=== PATIENT | female | born 1970 | race Caucasian/White ===

== ENCOUNTER 2017-12-23 10:30 | Day surgery (SDC) | payer OTHER ==
[~2017-12-23] VITALS: Ht 170.2 cm; Wt 91.6 kg
[~2017-12-23 10:30] MED LIST: Amitriptyline H50 MG PO; CLON1 PO; ERGO400 PO; Norco 7.5-3251 EACH PO; Omeprazole20 M1 PO; SERT100 PO; Toprol Xl50 MG PO
[2017-12-23 12:07] LABS: Anion Gap 9 mmol/L (6-16); Blood Urea Nitrogen 18 mg/dL (8-24); Bun/Creatinine Ratio 19.6 (12.0-20.0); CO2, Blood 26 mmol/L (21-32); Calcium, Blood 8.2 mg/dL (8.5-10.1); Chloride, Blood 107 mmol/L (98-108); Creatinine, Blood 0.92 mg/dL (0.40-1.00); Glomerular Filtration Rate >60 (60-); Glucose, Blood 87 mg/dL (70-99); Potassium, Blood 4.2 mmol/L (3.5-5.5); Sodium, Blood 142 mmol/L (136-145)
== END 2017-12-23 20:31 | disposition home or self-care (01) ==
LOC: ORSCMMR 10:30 → SURS 19:12 → ORSCMMR 20:31
PROVIDERS: Orthopaedic Surgery
PROC: 0PSC04Z Reposition Right Humeral Head with Internal Fixation Device, Open Approach (ICD-10-PCS; principal; 2017-12-23 12:30)
DX: S42.251A Displaced fracture of greater tuberosity of right humerus, initial encounter for closed fracture (principal); Z79.899 Other long term (current) drug therapy
CPT/HCPCS: 36415; 80048; 93005; 93010; C1713; J0690; J1100; J2250; J3010; J7120

== ENCOUNTER → 2018-01-27 | Outpatient (CLI) | payer OTHER ==
[2018-01-27 09:36] LABS: Anion Gap 6 mmol/L (6-16); Blood Urea Nitrogen 16 mg/dL (8-24); Bun/Creatinine Ratio 17.4 (12.0-20.0); CO2, Blood 27 mmol/L (21-32); Calcium, Blood 8.5 mg/dL (8.5-10.1); Chloride, Blood 111 mmol/L (98-108); Creatinine, Blood 0.92 mg/dL (0.40-1.00); Glomerular Filtration Rate >60 (60-); Glucose, Blood 97 mg/dL (70-99); Potassium, Blood 3.7 mmol/L (3.5-5.5); Sodium, Blood 144 mmol/L (136-145)
== END | disposition home or self-care (01) ==
LOC: LAB SHORT 08:50 → LAB 08:50
PROVIDERS: Orthopaedic Surgery
DX: I10 Essential (primary) hypertension (principal)
CPT/HCPCS: 36415; 80048

== ENCOUNTER 2020-09-30 01:29 | Inpatient (IN) | payer OTHER ==
[~2020-09-30] VITALS: Ht 167.6 cm; Wt 103.8 kg
[2020-09-30 01:51] LABS: BASOPHILS ABSOLUTE AUTO 0.21 K/mm3 (0.00-0.23); BASOPHILS PERCENT AUTO 1 % (0-2); EOSINOPHILS ABSOLUTE AUTO 0.43 K/mm3 (0.00-0.68); EOSINOPHILS PERCENT AUTO 3 % (0-6); Hemoglobin 12.1 g/dL (11.5-16.0); IMMATURE GRAN ABSOLUTE AUTO 1.11 K/mm3 (0.00-0.10); IMMATURE GRAN PERCENT AUTO 7 % (0-1); LYMPHOCYTES ABSOLUTE AUTO 3.37 K/mm3 (0.84-5.20); LYMPHOCYTES PERCENT AUTO 20 % (21-46); MONOCYTES ABSOLUTE AUTO 1.03 K/mm3 (0.16-1.47); MONOCYTES PERCENT AUTO 6 % (4-13); Mean Corpuscular HGB 27.4 pg (26.0-34.0); Mean Corpuscular HGB Conc 30.3 g/dL (31.5-36.5); Mean Corpuscular Volume 91 fL (80-100); Mean Platelet Volume 9.6 fL (9.1-12.4); NEUTROPHILS ABSOLUTE AUTO 10.67 K/mm3 (1.96-9.15); NEUTROPHILS PERCENT AUTO 64 % (41-73); NRBC ABSOLUTE 0.03 K/mm3 (0.00-0.02); NRBC Auto 0.2 /100 WBC (0.0-0.2); Platelet Count 536 K/mm3 (150-400); RDW Coefficient Variation 14.6 % (11.7-14.2); RDW Standard Deviation 48.4 fL (35.1-46.3); Red Blood Cell Count 4.42 M/mm3 (3.80-5.20); White Blood Cell Count 16.82 K/mm3 (4.00-11.30)
[2020-09-30 02:25] LABS: Albumin, Blood 2.1 g/dL (3.4-5.0); Albumin/Globulin Ratio 0.5 (0.8-1.8); Bilirubin, Total 0.2 mg/dL (0.1-1.0); Bun/Creatinine Ratio 12.3 (12.0-20.0); Calcium, Blood 8.9 mg/dL (8.5-10.1); Creatinine, Blood 1.14 mg/dL (0.40-1.00); Globulin, Blood 4.4 g/dL (2.2-4.0); Magnesium, Blood 2.2 mg/dL (1.6-2.4); Potassium, Blood 3.2 mmol/L (3.5-5.5); Total Protein, Blood 6.5 g/dL (6.4-8.2)
[2020-09-30 02:27] LABS: BAND PERCENT MAN 4 % (0-8); BASOPHILS PERCENT MAN 0 % (0-2); EOSINOPHILS ABSOLUTE MAN 0.16 K/mm3 (0.00-0.68); EOSINOPHILS PERCENT MAN 1 % (0-6); LYMPHOCYTES ABSOLUTE MAN 2.69 K/mm3 (0.84-5.20); LYMPHOCYTES PERCENT MAN 16 % (21-46); METAMYELOCYTE ABSOLUTE MAN 0.16 K/mm3 (0.00-0.00); METAMYELOCYTE PERCENT MAN 1 % (0-0); MONOCYTES ABSOLUTE MAN 0.84 K/mm3 (0.16-1.47); MONOCYTES PERCENT MAN 5 % (4-13); MYELOCYTE PERCENT MAN 3 % (0-0); NEUTROPHILS ABSOLUTE MAN 12.44 K/mm3 (1.96-9.15); SEG NEUTROPHILS PERCENT MAN 70 % (41-73); TOTAL CELLS COUNTED 100
[2020-09-30 02:31] LABS: Troponin I 0.575 ng/mL (0.000-0.040)
--- NOTE | 2020-09-30 06:00 | NUR ---
PATIENT ARRIVED TO ICU 6 VIA GURNEY FROM ED AFTER CT SCAN COMPLETE. PATIENT A&O VERBALIZED SHE IS FEELING BETTER AND LESS SOB. BIOX 91% ON 15L/NRB MASK. MOUTH DRY, MOISTENED WITH ORAL SWAB. PATIENT PALE COOL TO TOUCH SLIGHTLY DIAPHORETIC. LEVOPHED INFUSING AT 5MCG TO RIGHT IJ CENTRAL LINE, SBP 130'S LEVOPHED PLACED IN STANDBY. AYERS CATH PLACED TO MONITOR I&O CLOSELY, DRAINING 20 CC YELLOW URINE. REPORT GIVEN TO ROQUE LOUIS FOR FURTHER TREATMENTS.
[2020-09-30 06:06] LABS: International Normalized Ratio 1.07; Prothrombin Time Results 11.5 Sec (9.7-11.5)
[2020-09-30] MEDS ORDERED: LISI5 PO (06:28)
[2020-09-30 07:08] LABS: Source, Urine Clean Catch
[2020-09-30 07:15] LABS: Appearance, Urine Clear (Clear); Bilirubin, Urine Neg (Neg); Blood, Urine Neg (Neg); Color, Urine Yellow (P-Yellow); Glucose Qualitative, Urine Neg (Neg); Ketones, Urine Neg (Neg); Leukocyte Esterase, Urine Neg (Neg); Nitrite, Urine Neg (Neg); Protein, Urine 2+ (Neg); Urobilinogen, Urine NORM (Normal)
[2020-09-30 07:38] LABS: Bacteria Few /hpf; Red Blood Cells, Urine 0-2 /hpf (0-2); Squamous Epithelial Cells Rare /hpf (Few)
[2020-09-30 07:39] LABS: Hyaline Casts 25-50 /lpf (0-2); Mucus Light (0-Heavy)
--- NOTE | 2020-09-30 08:30 | NUR ---
ASSUMED CARE REPORT RECIEVED. PT IS LAYING IN BED AWAKE, ALERT, AND ORIENTED. PT ANSWERS ALL QUESTIONS APPROPRIATELY. PT DENIES SOB WHILE AT REST. PT ON 15L OXYMIZER. VITAL SIGNS STABLE AT THIS TIME. CENTRAL LINE TO RIJ IS C/D/I. LEVOPHED ON STANDBY. AYERS IN PLACE WITH YELLOW URINE OUTPUT NOTED. WILL CONTINUE TO MONITOR.
[2020-09-30 10:35] LABS: BASOPHILS PERCENT AUTO 1 % (0-2); EOSINOPHILS ABSOLUTE AUTO 0.02 K/mm3 (0.00-0.68); EOSINOPHILS PERCENT AUTO 0 % (0-6); Hematocrit 35.7 % (33.0-51.0); Hemoglobin 11.2 g/dL (11.5-16.0); IMMATURE GRAN ABSOLUTE AUTO 0.72 K/mm3 (0.00-0.10); IMMATURE GRAN PERCENT AUTO 5 % (0-1); LYMPHOCYTES ABSOLUTE AUTO 1.17 K/mm3 (0.84-5.20); LYMPHOCYTES PERCENT AUTO 8 % (21-46); MONOCYTES ABSOLUTE AUTO 0.42 K/mm3 (0.16-1.47); MONOCYTES PERCENT AUTO 3 % (4-13); Mean Corpuscular HGB 27.8 pg (26.0-34.0); Mean Corpuscular HGB Conc 31.4 g/dL (31.5-36.5); Mean Corpuscular Volume 89 fL (80-100); Mean Platelet Volume 9.8 fL (9.1-12.4); NEUTROPHILS ABSOLUTE AUTO 13.08 K/mm3 (1.96-9.15); NEUTROPHILS PERCENT AUTO 85 % (41-73); Platelet Count 435 K/mm3 (150-400); RDW Coefficient Variation 14.6 % (11.7-14.2); RDW Standard Deviation 47.1 fL (35.1-46.3); Red Blood Cell Count 4.03 M/mm3 (3.80-5.20); White Blood Cell Count 15.51 K/mm3 (4.00-11.30)
[2020-09-30 10:53] LABS: Alanine Aminotransfer (ALT/SGP 77 U/L (12-78); Albumin, Blood 2.1 g/dL (3.4-5.0); Albumin/Globulin Ratio 0.5 (0.8-1.8); Alk Phos 65 U/L (50-136); Anion Gap 4 mmol/L (6-16); Aspartate Aminotrans (AST/SGOT 49 U/L (12-37); Bilirubin, Total 0.5 mg/dL (0.1-1.0); Blood Urea Nitrogen 13 mg/dL (8-24); Bun/Creatinine Ratio 15.2 (12.0-20.0); CO2, Blood 27 mmol/L (21-32); Calcium, Blood 8.4 mg/dL (8.5-10.1); Chloride, Blood 113 mmol/L (98-108); Creatinine, Blood 0.85 mg/dL (0.40-1.00); Globulin, Blood 4.2 g/dL (2.2-4.0); Glomerular Filtration Rate >60 (60-); Glucose, Blood 145 mg/dL (70-99); Potassium, Blood 4.7 mmol/L (3.5-5.5); Sodium, Blood 144 mmol/L (136-145); Total Protein, Blood 6.3 g/dL (6.4-8.2)
[2020-09-30 11:11] LABS: Troponin I 0.68 ng/mL (0.000-0.040)
--- NOTE | 2020-09-30 17:11 | NUR ---
SHIFT SUMMARY NO ACUTE CHANGES THIS SHIFT. PT HAS REMAINED AWAKE, ALERT, AND ORIENTED. PT WITH INCREASING WORK OF BREATHING THIS AFTERNOON. PT SWITCHED TO AIRVO 50L, FIO2 80%. PT SPO2 >92% AND PT REPORTS EASE OF BREATHING. PT COMPLAINS OF PAIN TO LEFT SHOULDER/NECK THIS EVENING. PT MED PER EMAR. VITAL SIGNS HAVE REMAINED STABLE. CENTRAL LINE TO RIGHT IJ REMAINS C/D/I WITH HEPARIN INFUSING AT 17 UNITS/KG/HR, AND NS TKO. AYERS REMAINS IN PLACE WITH CLEAR YELLOW OUTPUT NOTED. WILL CONTINUE TO MONITOR AND REPORT OFF TO ONCOMING RN.
--- NOTE | 2020-09-30 17:45 | NUR ---
TAKEN TO BACTERIOLOGIST SOIL PT SWITCHED FROM AIRVO BACK TO 15L O2 VIA OXYMIZER, THEN TAKEN TO BACTERIOLOGIST SOIL.
--- NOTE | 2020-09-30 19:20 | NUR ---
RETURN FROM RELOCATION COORDINATOR/ASSUMED CARE PATIENT ARRIVED FROM RELOCATION COORDINATOR A&O X 4 AND ON OXYMIZER 15L WITH SPO2> 95%. INSERTION SITE IN RT GROIN HAS GAUZE W/ OPSITE DRESSING; APPEARS C/D/I. PATIENT HAS CL TO RT IJ INFUSING NS TKO, HEPARIN 17U/KG/HR, AND LEVOPHED ON SB. LARGE PE FROM RT LUNG REMOVED DURING CATH PROCEDURE AND TPA ADMINISTERED TO THE LT. PATIENT C/O LT SHOULDER AND UPPER BACK PN THAT IS BASELINE TO PATIENT. AYERS CATH IN PLACE PATENT AND DRAINING TO GRAVITY. WILL CONTINUE TO MONITOR.
[2020-09-30 20:30] LABS: Troponin I 0.474 ng/mL (0.000-0.040)
[2020-10-01 02:26] LABS: BASOPHILS ABSOLUTE AUTO 0.08 K/mm3 (0.00-0.23); BASOPHILS PERCENT AUTO 1 % (0-2); EOSINOPHILS ABSOLUTE AUTO 0.01 K/mm3 (0.00-0.68); EOSINOPHILS PERCENT AUTO 0 % (0-6); Hemoglobin 9.3 g/dL (11.5-16.0); IMMATURE GRAN ABSOLUTE AUTO 0.49 K/mm3 (0.00-0.10); IMMATURE GRAN PERCENT AUTO 3 % (0-1); LYMPHOCYTES ABSOLUTE AUTO 1.84 K/mm3 (0.84-5.20); LYMPHOCYTES PERCENT AUTO 11 % (21-46); MONOCYTES ABSOLUTE AUTO 1.61 K/mm3 (0.16-1.47); MONOCYTES PERCENT AUTO 10 % (4-13); Mean Corpuscular Volume 90 fL (80-100); Mean Platelet Volume 9.9 fL (9.1-12.4); NEUTROPHILS ABSOLUTE AUTO 12.67 K/mm3 (1.96-9.15); NEUTROPHILS PERCENT AUTO 76 % (41-73); Platelet Count 370 K/mm3 (150-400); RDW Coefficient Variation 15.1 % (11.7-14.2); RDW Standard Deviation 49.7 fL (35.1-46.3); Red Blood Cell Count 3.32 M/mm3 (3.80-5.20)
[2020-10-01 02:43] LABS: Anion Gap 4 mmol/L (6-16); Blood Urea Nitrogen 15 mg/dL (8-24); Bun/Creatinine Ratio 18.1 (12.0-20.0); CO2, Blood 26 mmol/L (21-32); Calcium, Blood 7.6 mg/dL (8.5-10.1); Chloride, Blood 113 mmol/L (98-108); Creatinine, Blood 0.83 mg/dL (0.40-1.00); Glomerular Filtration Rate >60 (60-); Glucose, Blood 115 mg/dL (70-99); Magnesium, Blood 2.2 mg/dL (1.6-2.4); Phosphorus, Blood 2.9 mg/dL (2.5-4.9); Potassium, Blood 4.3 mmol/L (3.5-5.5); Sodium, Blood 143 mmol/L (136-145)
--- NOTE | 2020-10-01 06:45 | NUR ---
SHIFT SUMMARY UPON ARRIVAL FROM BIG MACHINE CONSULTANT, PATIENT C/O SEVERE LT SHOULDER/UPPER BACK PN THAT IS BASELINE FOR PATIENT R/T PAST INJURY. PATIENT DENIED CHEST PN/SOB AT THAT TIME. PRN DILAUDID OBTAINED FOR SEVERE PAIN. PATIENT EXPERIENCED HYPOTENSIVE EPISODE DURING THE NIGHT WHERE SBP 70'S. ON ASSESSMENT PATIENT WAS SLEEPING WITH NONSENSICAL SPEECH WHEN AWOKEN. ORDERS OBTAINED FOR LR 500ML BOLUS, THEN 100ML/HR; LEVOPHED REMAINED ON SB. BP IMPROVED TO 90'S-100'S AND BASELINE ORIENTATION RETURNED. RT GROIN INSERSTION SITE BLED TWICE DURING THE NIGHT THAT REQUIRED DRESSING CHANGES DUE TO SATURATION FOLLOWING COUGHING FIT. SUTURE STILL IN PLACE UNDERNEATH DRESSING AND PATIENT EDUCATED ON SPLINTING AREA WHEN COUGHING. HEPARIN DECREASED TO 16U/KG/HR WITH SCHEDULED PTT F/U. WILL CONTINUE TO MONITOR UNTIL REPORT GIVEN TO DAYSHIFT RN.
--- NOTE | 2020-10-01 09:31 | NUR ---
ASSUMED CARE REPORT FROM RAÚL RN/TEJA RN. PT RESTING IN BED. A&OX 4. REPORT SOB c EXERTION OR PROLONGED SPEECH. LUNGS DIM IN BASES. PT REPORTS PRODUCTIVE COUGH. O2 SATS DECREASED TO 80'S c SPEAKING. INCREASED TO MID 90'S c DEEP BREATHS. OXYMIZER 15L. PT C/O PAIN TO UPPER SHOULDERS/BACK D/T COUGHING. MEDICATED ORDERED. ST ON MONITOR, RATE 110-120'S. BP STABLE. CVC TO RIJ. AYERS PATENT, DRAINING TO GRAVITY. VENOUS ACCESS SITE DRESSING C/D/I. NON TENDER, NO SWELLING OR ECCHYMOSIS NOTED. WILL CONTINUE TO MONITOR.
[2020-10-01 12:42] LABS: Hematocrit 31.9 % (33.0-51.0); Hemoglobin 9.8 g/dL (11.5-16.0)
--- NOTE | 2020-10-01 17:59 | NUR ---
SHIFT SUMMARY PT STATUS CHANGED TO PCU THIS SHIFT. HEPARIN GTT CONTINUES AT 19 UNITS/KG/HR. O2 TITRATED TO 12L VIA OXYMIZER. LUNGS DIM IN BASES. SPEAKING IN FULL SENTANCES. INCREASED WOB c PROLONGED SPEAKING. LR D/C'D. LEVO ON HOLD ENTIRE SHIFT. BP STABLE. ST 110-120'S. DIET ADVANCED. TOLERATED WELL. WILL CONTINUE TO MONITOR UNTIL REPORT TO ONCOMING NURSE.
--- NOTE | 2020-10-01 19:30 | NUR ---
ASSUMED CARE PT IS ALERT AND ORIENTED X4. PT DENIES PAIN OR SOB. PT STATES THAT SHE "ACYUALLY FEELS VERY WELL." ALSO STATED THAT SHE IS A BIT CONCEREND ABOUT HER CHILDREN THAT ARE STAYING WITH A CAREGIVER. CALL LIGHT IS WITHIN REACH WILL CONTINUE TO MONITOR.
--- NOTE | 2020-10-02 04:34 | NUR ---
SHIFT SUMMARY PT IS ALERT AND ORIENTED. VITALS ARE STABLE WITH SATS ABOVE 92% ON 12L OXYMIZER. DENIES CHEST PAIN OR SOB. THERE HAVE BEEN NO ACUTE CHANGES. PT DESATS WITH EXERTION SUCH EATING AND REPOSITIONING IN BED DOWN TO HIGH/LOW 80'S. PT IS ABLE TO COMMUNICATE WITH NO IMPAIMENTS. PT IS SOMEWHAT EMOTIONAL DUE TO HER CHILDREN BEING IN CHILDCARE.HEPARIN IS INFUSING. CALL LIGHT IS WITHIN REACH.
[2020-10-02 08:22] LABS: BASOPHILS ABSOLUTE AUTO 0.14 K/mm3 (0.00-0.23); BASOPHILS PERCENT AUTO 1 % (0-2); EOSINOPHILS ABSOLUTE AUTO 0.32 K/mm3 (0.00-0.68); EOSINOPHILS PERCENT AUTO 2 % (0-6); Hematocrit 29.9 % (33.0-51.0); Hemoglobin 9.1 g/dL (11.5-16.0); IMMATURE GRAN ABSOLUTE AUTO 0.68 K/mm3 (0.00-0.10); IMMATURE GRAN PERCENT AUTO 4 % (0-1); LYMPHOCYTES ABSOLUTE AUTO 2.38 K/mm3 (0.84-5.20); LYMPHOCYTES PERCENT AUTO 15 % (21-46); MONOCYTES ABSOLUTE AUTO 1.67 K/mm3 (0.16-1.47); MONOCYTES PERCENT AUTO 11 % (4-13); Mean Corpuscular HGB 27.7 pg (26.0-34.0); Mean Corpuscular HGB Conc 30.4 g/dL (31.5-36.5); Mean Corpuscular Volume 91 fL (80-100); Mean Platelet Volume 10.2 fL (9.1-12.4); NEUTROPHILS ABSOLUTE AUTO 10.44 K/mm3 (1.96-9.15); NEUTROPHILS PERCENT AUTO 67 % (41-73); Platelet Count 390 K/mm3 (150-400); RDW Coefficient Variation 15.2 % (11.7-14.2); RDW Standard Deviation 50.4 fL (35.1-46.3); Red Blood Cell Count 3.29 M/mm3 (3.80-5.20); White Blood Cell Count 15.63 K/mm3 (4.00-11.30)
[2020-10-02 08:40] LABS: Alanine Aminotransfer (ALT/SGP 62 U/L (12-78); Albumin, Blood 1.9 g/dL (3.4-5.0); Albumin/Globulin Ratio 0.5 (0.8-1.8); Alk Phos 54 U/L (50-136); Anion Gap 3 mmol/L (6-16); Aspartate Aminotrans (AST/SGOT 34 U/L (12-37); Bilirubin, Total 0.1 mg/dL (0.1-1.0); Blood Urea Nitrogen 20 mg/dL (8-24); Bun/Creatinine Ratio 23.8 (12.0-20.0); CO2, Blood 29 mmol/L (21-32); Calcium, Blood 8.1 mg/dL (8.5-10.1); Chloride, Blood 112 mmol/L (98-108); Creatinine, Blood 0.84 mg/dL (0.40-1.00); Globulin, Blood 3.7 g/dL (2.2-4.0); Glomerular Filtration Rate >60 (60-); Glucose, Blood 108 mg/dL (70-99); Potassium, Blood 4.5 mmol/L (3.5-5.5); Sodium, Blood 144 mmol/L (136-145); Total Protein, Blood 5.6 g/dL (6.4-8.2)
--- NOTE | 2020-10-02 14:16 | NUR ---
TRANSFER TO PCU PT WAS TRANSFERRED TO PCU AND REPORT WAS GIVEN TO MISSY PACKER. PT IS ALERT AND ORIENTED. HEPARIN GTT IS RUNNING AND WAS VERIFIED UPON ARRIVAL TO PCU. PT HAS KVO RUNNING TO HER CENTRAL LINE. PT HAS A AYERS CATH IN THAT IS PATENT AND DRAINING. PT ATTEMPTED TO GET UP TO THE BEDSIDE COMMODE BUT WAS UNABLE TO SHE BEGAN TO DESATURATE WITH DANGLING. PT IS ON 12L OXYMIZER, VS STABLE. PT WAS TRANSFERRED AT APPROXIMATELY 1405
--- NOTE | 2020-10-02 18:05 | NUR ---
PT WAS TRANSFERED FROM ICU TODAY, REMAINS ON 10L HIGH FLOW CANNULA. PT A/O X4. HAPPY AND ANSWERING QUESTIONS APPROPRIATELY IN FULL SENTENCES. PT REPORTS IMRPOVED BREATHING SINCE ADMISSION, REPORTS DYSPNEA WITH ACTIVITY, PER REPORT FROM ICU PT DID DESATURATE EASILY WITH ACTIVITY. PT RESTING WELL IN BED AT THIS TIME, DENIES SOB AND CP. VSS. NADN.
--- NOTE | 2020-10-03 05:31 | NUR ---
SHIFT SUMMARY ASSUMED CARE OF PT AT 1900. PT IS A/OX4. HEART SOUNDS REGULAR, LUNG SOUNDS HAVE CRACKLES AT THE BASES. PT WAS TITRATED FROM 13L TO 9L THIS AM, SATURATSIONS REMAIN ABOVE 96%. PT C/O SOB WHEN GETTING UP BUT SATURTATIONS REMAINED ABOVE 90%. PT IS A 1P ASSIST TO BSC. PT AEYRS IS DRAINING CLEAR YELLOW URINE. PT DID NOT SLEEP WELL DURING THE NIGHT BUT WHEN ASKED FOR SLEEPING AID IT WAS WELL PAST 4 AM. PT IS UPSET ABOUT BEING AWAY FROM HER CHILDREN AND FEARS THAT HE BOYFRIEND HAS HER KEYS AND CAN GET INTO THINGS HE SHOULDNT, LIKE HER CAR AND GUN SAFE. CALL LIGHT IN REACH, BED IN LOWEST POSTION.
--- NOTE | 2020-10-03 09:12 | NUR ---
UPDATE ASSUMED CARE AT APPROXIMATELY 0730. PT ALERT AND ORIENTED. O2 SATS REMAIN ABOVE 90% ON 8L OXYMIZER. LS DIMINISHED. PT HAS DRY NONPRODUCTIVE COUGH. AYERS CATHETER REMOVED THIS AM. PLAN TO REMOVE CENTRAL LINE WELL. PT REPOSITIONING HERSELF IN BED. WILL ATTEMPT TO TITRATE O2 DOWN IF PT TOLERATES. WILL CONTINUE TO MONITOR CLOSEY.
--- NOTE | 2020-10-03 10:42 | NUR ---
UPDATE BED ASSIGNMENT OF 303. REPORT GIVEN TO MEDICAL FLOOR RN. PT TAKEN UP BY VANESSA
--- NOTE | 2020-10-03 18:19 | NUR ---
SHIFT SUMMARY PT TRANSFERRED TO UNIT FROM PCU THIS SHIFT. RECEIVED REPORT FROM MISSY ESPINOZA. PT AAOX4, ABLE TO MAKE NEEDS KNOWN, PLEASANT AND COOPERATIVE TO CARE. PT ON 6L O2 VIA OXIMIZER SATTING 91-93%. PT REQUIRES SBA TO BATHROOM. NO ACUTE CHANGES NOTED THIS SHIFT. PT CONTINUES ON IV ABX ORDERED, NO ASE NOTED. BED AT LOWEST POSITION. CALL LIGHT WITHIN REACH.
--- NOTE | 2020-10-04 04:58 | NUR ---
ASSEMBLER HANDBAGS SUMMARY NO ACUTE CHANGES THIS SHIFT. PT AAOX4 AND PLEASANT. ON 6L O2 VIA OXYMIZER. REPORTS IMPROVEMENT IN RESPIRATORY STATUS. MEDICATED WITH PRN CLONAZEPAM AT BEDTIME TO HELP WITH ANXIETY AND SLEEP. TYLENOL X1 FOR GENERAL PAINS. NO OTHER COMPLAINTS FROM PT. VSS, WILL CONTINUE TO MONITOR.
--- NOTE | 2020-10-04 15:58 | NUR ---
SHIFT SUMMARY PATIENT DENIES PAIN AND NAUSEA. PATIENT REPORTS SHORTNESS OF BREATH WITH ACTIVITY. PATIENT WAS ABLE TO TOLERATE A SHOWER TODAY. PATIENT TIRATED FROM 6L TO 3.5L. PATIENT TOLERATING WELL AND MAINTAINING O2 SATS ABOVE 92%. PATIENT EATING AND DRINKING WELL. PATIENT PLEASANT AND COOPERATIVE WITH CARE. PATIENT FINISHED LAST DOSE OF REMDESIVIR TODAY.
--- NOTE | 2020-10-05 05:00 | NUR ---
SUMMARY: PT A/OX4, CALLS APPROPRIATELY AND IS PLEASANT AND COOPERATIVE W/CARE. PT UP AD MARILU BUT IS AWARE OF LIMITATIONS AND CALLS FOR ASSIST PRN. PT CONT'S TO REPORT SOB W/EXERTION BUT RECOVERS QUICKLY AND RESPS ARE E/U AT REST. SHE REMAINS ON 3.5L O2 W/SPO2 WNL AND HOME O2 EVAL PLANNED FOR TODAY. SHE RECIEVED KLONOPIN AT FOR SLEEP AND TYLENOL FOR CHRONIC ARM PAIN PER PT REQUEST. PT SLEPT MAJORITY OF NOCTE W/O S/S DISTRESS. VSS/AFEBRILE AND NO ACUTE CHANGES. POSSIBLE D/C HOME TODAY. WCTM AND REPORT TO DAY RN.
--- NOTE | 2020-10-05 15:27 | NUR ---
NURSE HOME O2 EVAL PATIENT ON ROOM AIR AT REST WAS 90%. PATIENT ON ROOM AIR WITH ACTIVITY WAS 82%. PATIENT ON 2L WITH ACTIVITY WAS 91-92%.
[2020-10-05] MEDS ORDERED: DEXA6 PO (16:24)
[2020-10-05] MEDS ORDERED: XARELTO20 MG PO ×2 (16:28→16:34)
--- NOTE | 2020-10-05 17:31 | NUR ---
DISCHARGE PATIENT TRANSPORTED VIA WHEELCHAIR TO PRIVATE VEHICLE. DISCHARGE INSTRUCTIONS REVIEWED WITH PATIENT, PATIENT STATED UNDERSTANDING. INSTRUCTION PACKET SENT WITH PATIENT. BELONGINGS SENT WITH PATIENT. IV REMOVED WITHOUT DIFFICULTY. MEDICATED FOR ANXIETY.
== END 2020-10-05 17:40 | disposition home or self-care (01) | DRG 163 ==
LOC: ER 01:29 → ICUE 04:30 → ICUW 04:30 → ICUE 05:58 → PCU 10-02 13:56 → MEDS 10-03 10:54
PROVIDERS: Emergency Medicine; Family Medicine; Internal Medicine; Internal Medicine Critical Care Medicine; ADMIT Internal Medicine
PROC: 02CR3ZZ Extirpation of Matter from Left Pulmonary Artery, Percutaneous Approach (ICD-10-PCS; principal; 2020-09-30)
PROC: 02CQ3ZZ Extirpation of Matter from Right Pulmonary Artery, Percutaneous Approach (ICD-10-PCS; 2020-09-30)
PROC: 8E0ZXY6 Isolation (ICD-10-PCS; 2020-09-30)
PROC: 3E06317 Introduction of Other Thrombolytic into Central Artery, Percutaneous Approach (ICD-10-PCS; 2020-09-30)
PROC: 02HV33Z Insertion of Infusion Device into Superior Vena Cava, Percutaneous Approach (ICD-10-PCS; 2020-09-30)
PROC: B548ZZA Ultrasonography of Superior Vena Cava, Guidance (ICD-10-PCS; 2020-09-30)
PROC: 3E033XZ Introduction of Vasopressor into Peripheral Vein, Percutaneous Approach (ICD-10-PCS; 2020-09-30)
PROC: 3E0333Z Introduction of Anti-inflammatory into Peripheral Vein, Percutaneous Approach (ICD-10-PCS; 2020-09-30)
PROC: XW033E5 Introduction of Remdesivir Anti-infective into Peripheral Vein, Percutaneous Approach, New Technology Group 5 (ICD-10-PCS; 2020-09-30)
PROC: 5A0945A Assistance with Respiratory Ventilation, 24-96 Consecutive Hours, High Flow/Velocity Cannula (ICD-10-PCS; 2020-09-30)
PROC: B31TYZZ Fluoroscopy of Left Pulmonary Artery using Other Contrast (ICD-10-PCS; 2020-09-30)
PROC: B31SYZZ Fluoroscopy of Right Pulmonary Artery using Other Contrast (ICD-10-PCS; 2020-09-30)
DX: U07.1 COVID-19 (principal); I26.99 Other pulmonary embolism without acute cor pulmonale; J12.82 Pneumonia due to coronavirus disease 2019; J96.01 Acute respiratory failure with hypoxia; F41.9 Anxiety disorder, unspecified; Z88.0 Allergy status to penicillin; Z88.2 Allergy status to sulfonamides; Z91.040 Latex allergy status; Z98.890 Other specified postprocedural states; K21.9 Gastro-esophageal reflux disease without esophagitis; Z79.899 Other long term (current) drug therapy
CPT/HCPCS: 36014; 36015; 36415; 36556; 37184; 37185; 51703; 71045; 71260; 75743; 75825; 76937; 80048; 80053; 81001; 81025; 82550; 82947; 83605; 83735; 83880; 84100; 84145; 84484; 85014; 85018; 85025; 85610; 85730; 93005; 93010; 93306; 93970; 96365-59; 96366-59; 96375-59; 97110; 97161; 97530; 99152; 99153; 99285-25; A9270; C1751; C1769; C1887; C1894; J1100; J1170; J1644; J1650; J2060; J2250; J2997; J3010; J3480; J7030; J7040; J7060; J7120; Q9967